=== PATIENT | male | born 1960 | race Asian ===

== ENCOUNTER 2020-09-09 15:24 | Inpatient (IN) | payer MEDICAID ==
[~2020-09-09] VITALS: Ht 167.6 cm; Wt 89.0 kg
[2020-09-09] MEDS ORDERED: BENZ1TAB10 PO (18:16)
[2020-09-09] MEDS ORDERED: QUET200T PO (18:16)
[2020-09-09] MEDS ORDERED: TAMS-13 PO (18:16)
[2020-09-09] MEDS ORDERED: FLUO-191 PO (18:16)
[2020-09-09] MEDS ORDERED: METF-960 PO (18:16)
[2020-09-09] MEDS ORDERED: BUPR-93 PO (18:16)
[2020-09-09] MEDS ORDERED: ZOLPIDEM TARTRATE 10 MG TABLET PO PRN (22:15)
[2020-09-09] MEDS ORDERED: HALOPERIDOL 5 MG TABLET PO PRN (22:15)
[2020-09-09] MEDS ORDERED: LORazepam 2 MG TABLET PO PRN (22:15)
[2020-09-09 22:56] VITALS: BP_SYST 148; BP_SYST 158; BP_DIAS 63
[2020-09-10 01:00] VITALS: BP 156/72
[2020-09-10] MEDS ORDERED: LORazepam 2 MG/ML VIAL ONE (01:04)
[2020-09-10] MEDS ORDERED: DiphenhydrAMINE HCL 50 MG/ML VIAL ONE (01:05)
[2020-09-10] MEDS ORDERED: HALOPERIDOL LACTATE 5 MG/ML VIAL ONE (01:05)
[2020-09-10] MEDS ORDERED: HALOPERIDOL LACTATE 5 MG/ML VIAL IM ONE (01:15)
[2020-09-10] MEDS ORDERED: DiphenhydrAMINE HCL 50 MG/ML VIAL IM ONE (01:15)
[2020-09-10] MEDS ORDERED: LORazepam 2 MG/ML VIAL IM ONE (01:15)
[2020-09-10] MEDS ORDERED: INFLUENZA VIRUS VACCINE QVS 2020-21 (6MO+)/PF 60 MCG/0.5 ML SYRINGE IM ONE (01:30)
[2020-09-10] MEDS ORDERED: PNEUMOCOCCAL VACCINE POLYVALENT 0.5 ML VIAL [PPSV23] IM ONE (01:30)
[2020-09-10 02:11] VITALS: BP 116/70
[2020-09-10] MEDS ORDERED: MAGNESIUM HYDROXIDE SUSPENSION 30 ML UDCUP PO PRN (07:45)
[2020-09-10] MEDS ORDERED: ACETAMINOPHEN 325 MG TABLET PO PRN (07:45)
[2020-09-10] MEDS ORDERED: GuaiFENesin/D-METHORPHAN [SUGAR-FREE] 200-20MG/10 ML SYRUP UDCUP PO PRN (07:45)
[2020-09-10] MEDS ORDERED: MAG HYDROX/AL HYDROX/SIMETH ES 30 ML SUSPENSION UDCUP PO PRN (07:45)
[2020-09-10] MEDS ORDERED: PETROLATUM,WHITE 28 GM JELLY TP PRN (07:45)
[2020-09-10] MEDS ORDERED: ALBUTEROL SULFATE HFA 90 MCG/PUFF 8 GM INHALER IH PRN (07:45)
[2020-09-10] MEDS ORDERED: LOPERAMIDE HCL 2 MG CAPSULE PO PRN (07:45)
[2020-09-10] MEDS ORDERED: NICOTINE 14 MG/24 HOUR PATCH TD PRN (07:45)
[2020-09-10] MEDS ORDERED: DOCUSATE SODIUM 100 MG CAPSULE PO PRN (07:45)
[2020-09-10] MEDS ORDERED: ONDANSETRON HCL 4 MG TABLET PO PRN (07:45)
[2020-09-10] MEDS ORDERED: CloNIDine HCL 0.1 MG TABLET PO PRN (07:45)
[2020-09-10] MEDS ORDERED: IBUPROFEN 400 MG TABLET PO PRN (07:45)
[2020-09-10] MEDS: TAMSULOSIN HCL 0.4 MG CAPSULE PO SCH (09:32)
[2020-09-10] MEDS: BENZTROPINE MESYLATE 1 MG TABLET PO SCH ×2 (13:23→20:38)
[2020-09-10] MEDS: BuPROPion HCL XL 150 MG ER TABLET PO SCH (13:23)
[2020-09-10] MEDS: FLUoxetine HCL 20 MG CAPSULE PO SCH (13:24)
[2020-09-10 16:12] VITALS: BP 129/63
[2020-09-10] MEDS: MetFORMIN HCL 500 MG TABLET PO SCH (16:50)
[2020-09-10] MEDS: QUEtiapine FUMARATE 200 MG TABLET PO SCH (20:38)
[2020-09-11] MEDS: MetFORMIN HCL 500 MG TABLET PO SCH ×2 (06:59→17:15)
[2020-09-11 07:05] VITALS: BP 132/74
[2020-09-11 08:06] LABS: APPEARANCE,URINE CLEAR (CLEAR); BILIRUBIN,URINE NEGATIVE (NEGATIVE); GLUCOSE, URINE (UA) NEGATIVE (NEGATIVE); KETONES,URINE NEGATIVE (NEGATIVE); LEUKOCYTE ESTERASE ,URINE NEGATIVE (NEGATIVE); NITRATE,URINE NEGATIVE (NEGATIVE); OCCULT BLOOD,URINE NEGATIVE (NEGATIVE); PH,URINE 6.5 (5.0-8.0); PROTEIN,URINE NEGATIVE (NEGATIVE); UROBILINOGEN,URINE 0.2 mg/dL (<=1.0)
[2020-09-11 08:11] LABS: AMPHET/METH SCREEN,URINE NEGATIVE (NEGATIVE); BARBITURATE SCREEN, URINE NEGATIVE (NEGATIVE); BENZODIAZEPINES SCREEN,URINE NEGATIVE (NEGATIVE); CANNABINOID SCREEN,URINE NEGATIVE (NEGATIVE); COCAINE SCREEN,URINE NEGATIVE (NEGATIVE); METHADONE SCREEN, URINE NEGATIVE (NEGATIVE); OPIATE SCREEN,URINE NEGATIVE (NEGATIVE)
[2020-09-11 08:12] LABS: BASOPHILS % (AUTO) 0.9 % (0.0-2.0); EOSINOPHILS % (AUTO) 5.3 % (1.0-6.0); HEMATOCRIT 44.1 % (41-53); HEMOGLOBIN 15.1 g/dL (13.5-17.5); LYMPHOCYTES # (AUTO) 1.5 K/uL (1.0-4.8); MEAN CORPUSCULAR HEMOGLOBIN 29.8 pg (26.0-34.0); MEAN CORPUSCULAR HGB CONC 34.3 G/dL (31.0-37.0); MEAN CORPUSCULAR VOLUME 87 fL (80-100); MONOCYTES # (AUTO) 0.6 K/uL (0.1-1.0); MONOCYTES % (AUTO) 9.1 % (2.0-9.0); NEUTROPHILS # (AUTO) 4.2 K/uL (1.8-7.7); NEUTROPHILS % (AUTO) 61.7 % (40.0-70.0); PLATELET COUNT (AUTO) 272 K/uL (150-450); RED BLOOD CELL COUNT(AUTO) 5.06 MIL/uL (4.50-5.90); RED CELL DISTRIBUTION WIDTH 14.3 % (11.5-14.5)
[2020-09-11 08:17] LABS: HEMOGLOBIN A1C 5.8 % (3.8-5.6)
[2020-09-11 08:18] LABS: PHENCYCLIDINE SCREEN,URINE NEGATIVE (NEGATIVE)
[2020-09-11] MEDS: TAMSULOSIN HCL 0.4 MG CAPSULE PO SCH (08:24)
[2020-09-11] MEDS: BuPROPion HCL XL 150 MG ER TABLET PO SCH (08:24)
[2020-09-11] MEDS: BENZTROPINE MESYLATE 1 MG TABLET PO SCH ×2 (08:24→20:13)
[2020-09-11] MEDS: FLUoxetine HCL 20 MG CAPSULE PO SCH (08:24)
[2020-09-11 08:34] VITALS: BP 158/74
[2020-09-11 08:43] LABS: ALBUMIN 3.7 g/dL (3.4-5.0); BILIRUBIN,TOTAL 0.6 mg/dL (0.1-1.0); CALCIUM, TOTAL 8.9 mg/dL (8.8-10.5); CHOL/HDL RATIO 4.2 (4.2-7.3); CREATININE 1.4 mg/dL (0.60-1.30); FREE T4 (FREE THYROXINE) 1.23 ng/dL (0.76-1.46); POTASSIUM 4.8 mmol/L (3.5-5.1); THYROID STIMULATING HORMONE 0.49 uIU/mL (0.36-3.74); TOTAL PROTEIN, SERUM 6.6 g/dL (6.4-8.2)
[2020-09-11 16:06] VITALS: BP 127/86
[2020-09-11 17:22] LABS: GLUCOMETER DEV NAME(LOC) 3E.C; GLUCOSE,POINT OF CARE 98 MG/DL (70-110)
[2020-09-11] MEDS: QUEtiapine FUMARATE 200 MG TABLET PO SCH (20:13)
[2020-09-12] MEDS: MetFORMIN HCL 500 MG TABLET PO SCH (07:06)
[2020-09-12 08:00] VITALS: BP 145/64
[2020-09-12] MEDS: BuPROPion HCL XL 150 MG ER TABLET PO SCH (09:18)
[2020-09-12] MEDS: FLUoxetine HCL 20 MG CAPSULE PO SCH (09:18)
[2020-09-12] MEDS: BENZTROPINE MESYLATE 1 MG TABLET PO SCH (09:18)
[2020-09-12] MEDS: TAMSULOSIN HCL 0.4 MG CAPSULE PO SCH (09:19)
[2020-09-12] MEDS ORDERED: BENZ1TAB10 PO (10:55)
[2020-09-12] MEDS ORDERED: QUET200T29 PO (10:55)
[2020-09-12] MEDS ORDERED: FLUO-191 PO (10:55)
[2020-09-12] MEDS ORDERED: BUPR-47 PO (10:55)
== END 2020-09-12 14:30 | disposition home or self-care (01) | DRG 753 ==
LOC: B3A 22:05 → 3EC 09-11 13:45
DX: F31.5 Bipolar disorder, current episode depressed, severe, with psychotic features (principal); R45.851 Suicidal ideations; Z91.5 Personal history of self-harm; Z81.8 Family history of other mental and behavioral disorders; I10 Essential (primary) hypertension; N40.0 Benign prostatic hyperplasia without lower urinary tract symptoms; E11.9 Type 2 diabetes mellitus without complications; M79.7 Fibromyalgia; G47.33 Obstructive sleep apnea (adult) (pediatric); Z79.899 Other long term (current) drug therapy; Z28.21 Immunization not carried out because of patient refusal
CPT/HCPCS: 80307; 83036; 84439; 84443; 94660; J1200; J1630; J2060

== ENCOUNTER 2022-04-14 17:13 | Inpatient (IN) | payer MEDICARE, MEDICAID ==
[~2022-04-14] VITALS: Ht 170.2 cm; Wt 85.3 kg
[~2022-04-14 17:13] MED LIST: BENZ1TAB96 PO; BUPR-49 PO; FLUO-177 PO; METF-1211 PO; QUET200T30 PO; TAMS-13 PO
[2022-04-14] MEDS ORDERED: METO-558 PO (18:11)
[2022-04-14] MEDS ORDERED: TRAZ-257 PO (18:11)
[2022-04-14] MEDS ORDERED: LISI-892 PO (18:50)
[2022-04-14] MEDS ORDERED: ATOR10TA84 PO (18:50)
[2022-04-14] MEDS ORDERED: OLAN5TAB52 PO (18:50)
[2022-04-14] MEDS ORDERED: DEUT12TA PO (18:50)
[2022-04-14] MEDS ORDERED: CLON-592 PO (18:50)
[2022-04-14] MEDS ORDERED: CLON1PAT13 TD (18:50)
[2022-04-14 20:13] LABS: BASOPHILS % (AUTO) 1.3 % (0.0-2.0); EOSINOPHILS % (AUTO) 1.9 % (1.0-6.0); HEMOGLOBIN 14.3 g/dL (13.5-17.5); LYMPHOCYTES % (AUTO) 21.3 % (22.0-44.0); MEAN CORPUSCULAR HEMOGLOBIN 29.3 pg (26.0-34.0); MEAN CORPUSCULAR VOLUME 86 fL (80-100); MONOCYTES # (AUTO) 0.7 K/uL (0.1-1.0); MONOCYTES % (AUTO) 7.4 % (2.0-9.0); NEUTROPHILS # (AUTO) 6.3 K/uL (1.8-7.7); NEUTROPHILS % (AUTO) 68.1 % (40.0-70.0); PLATELET COUNT (AUTO) 297 K/uL (150-450); RED BLOOD CELL COUNT(AUTO) 4.88 MIL/uL (4.50-5.90); RED CELL DISTRIBUTION WIDTH 13.3 % (11.5-14.5)
[2022-04-14] MEDS ORDERED: DiphenhydrAMINE HCL 50 MG/ML VIAL IM ONE (20:15)
[2022-04-14 20:24] LABS: CALCIUM, TOTAL 8.7 mg/dL (8.8-10.5); CREATININE 1.51 mg/dL (0.60-1.30); POTASSIUM 4.7 mmol/L (3.5-5.1)
[2022-04-14 20:29] LABS: ALBUMIN 3.7 g/dL (3.4-5.0); BILIRUBIN,TOTAL 0.7 mg/dL (0.1-1.0); TOTAL PROTEIN, SERUM 6.7 g/dL (6.4-8.2)
[2022-04-14 21:07] LABS: COVID AG,FIA SOURCE NASAL SWAB
[2022-04-14 21:56] LABS: AMPHET/METH SCREEN,URINE NEGATIVE (NEGATIVE); BARBITURATE SCREEN, URINE NEGATIVE (NEGATIVE); BENZODIAZEPINES SCREEN,URINE NEGATIVE (NEGATIVE); CANNABINOID SCREEN,URINE NEGATIVE (NEGATIVE); COCAINE SCREEN,URINE NEGATIVE (NEGATIVE); METHADONE SCREEN, URINE NEGATIVE (NEGATIVE); OPIATE SCREEN,URINE NEGATIVE (NEGATIVE)
[2022-04-14 22:01] LABS: PHENCYCLIDINE SCREEN,URINE NEGATIVE (NEGATIVE)
[2022-04-15] MEDS ORDERED: ZOLPIDEM TARTRATE 10 MG TABLET PO PRN (00:15)
[2022-04-15] MEDS ORDERED: LORazepam 2 MG TABLET PO PRN (00:15)
[2022-04-15] MEDS ORDERED: HALOPERIDOL 5 MG TABLET PO PRN (00:15)
[2022-04-15 02:46] LABS: GLUCOMETER DEV NAME(LOC) BV2S.; GLUCOSE,POINT OF CARE 106 MG/DL (70-110)
[2022-04-15 03:07] VITALS: BP 138/69
[2022-04-15] MEDS ORDERED: LOPERAMIDE HCL 2 MG CAPSULE PO PRN (06:00)
[2022-04-15] MEDS ORDERED: ALBUTEROL SULFATE HFA 90 MCG/PUFF 8 GM INHALER IH PRN (06:00)
[2022-04-15] MEDS ORDERED: OMEPRAZOLE 20 MG CAPSULE PO PRN (06:00)
[2022-04-15] MEDS ORDERED: ONDANSETRON HCL 4 MG TABLET PO PRN (06:00)
[2022-04-15] MEDS ORDERED: DOCUSATE SODIUM 100 MG CAPSULE PO PRN (06:00)
[2022-04-15] MEDS ORDERED: PETROLATUM,WHITE 28 GM JELLY TP PRN (06:00)
[2022-04-15] MEDS ORDERED: ACETAMINOPHEN 325 MG TABLET PO PRN (06:00)
[2022-04-15] MEDS ORDERED: IBUPROFEN 600 MG TABLET PO PRN (06:00)
[2022-04-15] MEDS ORDERED: BACITRACIN 28 GM OINTMENT TP PRN (06:00)
[2022-04-15] MEDS ORDERED: MAG HYDROX/AL HYDROX/SIMETH ES 30 ML SUSPENSION UDCUP PO PRN (06:00)
[2022-04-15] MEDS ORDERED: MAGNESIUM HYDROXIDE SUSPENSION 30 ML UDCUP PO PRN (06:00)
[2022-04-15] MEDS ORDERED: CloNIDine HCL 0.1 MG TABLET PO PRN (06:00)
[2022-04-15] MEDS ORDERED: BENZOCAINE/MENTHOL LOZENGE PO PRN (06:00)
[2022-04-15] MEDS: LISINOPRIL 5 MG TABLET PO SCH (08:17)
[2022-04-15] MEDS: ATORVASTATIN CALCIUM 10 MG TABLET PO SCH (08:17)
[2022-04-15] MEDS: TAMSULOSIN HCL 0.4 MG CAPSULE PO SCH (08:17)
[2022-04-15 08:28] VITALS: BP 105/59
[2022-04-15] MEDS ORDERED: METOPROLOL SUCCINATE 50 MG ER TABLET PO SCH (09:00)
[2022-04-15] MEDS ORDERED: METOPROLOL SUCCINATE 25 MG ER TABLET PO SCH (09:00)
[2022-04-15 16:06] VITALS: BP 142/81
[2022-04-15 19:00] VITALS: BP 156/81
[2022-04-16 08:00] VITALS: BP 144/94
[2022-04-16] MEDS: LISINOPRIL 5 MG TABLET PO SCH (08:39)
[2022-04-16] MEDS: TAMSULOSIN HCL 0.4 MG CAPSULE PO SCH (08:39)
[2022-04-16] MEDS: ATORVASTATIN CALCIUM 10 MG TABLET PO SCH (08:40)
[2022-04-16] MEDS: METOPROLOL SUCCINATE 50 MG ER TABLET PO SCH (08:40)
[2022-04-16 09:56] LABS: CALCIUM, TOTAL 9.5 mg/dL (8.8-10.5); CREATININE 1.57 mg/dL (0.60-1.30); POTASSIUM 4.5 mmol/L (3.5-5.1)
[2022-04-16 16:17] VITALS: BP 148/84
[2022-04-17] MEDS: ATORVASTATIN CALCIUM 10 MG TABLET PO SCH (08:47)
[2022-04-17] MEDS: TAMSULOSIN HCL 0.4 MG CAPSULE PO SCH (08:47)
[2022-04-17] MEDS: METOPROLOL SUCCINATE 50 MG ER TABLET PO SCH (08:47)
[2022-04-17] MEDS: LISINOPRIL 5 MG TABLET PO SCH (08:47)
[2022-04-17 09:55] VITALS: BP 120/74
[2022-04-17 16:34] VITALS: BP 128/67
[2022-04-18 06:40] VITALS: BP 127/81
[2022-04-18] MEDS: LISINOPRIL 5 MG TABLET PO SCH (08:24)
[2022-04-18] MEDS: TAMSULOSIN HCL 0.4 MG CAPSULE PO SCH (08:24)
[2022-04-18] MEDS: METOPROLOL SUCCINATE 50 MG ER TABLET PO SCH (08:25)
[2022-04-18] MEDS: ATORVASTATIN CALCIUM 10 MG TABLET PO SCH (08:25)
[2022-04-18 10:37] VITALS: BP 151/81
[2022-04-18 16:55] VITALS: BP 125/70
[2022-04-19 08:00] VITALS: BP 146/91
[2022-04-19] MEDS: LISINOPRIL 5 MG TABLET PO SCH (09:11)
[2022-04-19] MEDS: METOPROLOL SUCCINATE 50 MG ER TABLET PO SCH (09:11)
[2022-04-19] MEDS: ATORVASTATIN CALCIUM 10 MG TABLET PO SCH (09:11)
[2022-04-19] MEDS: TAMSULOSIN HCL 0.4 MG CAPSULE PO SCH (09:12)
== END 2022-04-19 14:30 | disposition home or self-care (01) | DRG 885 ==
LOC: EMS 17:59 → B2S 04-15 00:01 → 3EX 04-15 18:34
PROVIDERS: ADMIT Psychiatry & Neurology Psychiatry; ATTEND Psychiatry & Neurology Psychiatry
DX: F25.9 Schizoaffective disorder, unspecified (principal); N18.9 Chronic kidney disease, unspecified; R45.851 Suicidal ideations; E11.22 Type 2 diabetes mellitus with diabetic chronic kidney disease; G47.00 Insomnia, unspecified; K59.00 Constipation, unspecified; F41.9 Anxiety disorder, unspecified; Z20.822 Contact with and (suspected) exposure to COVID-19; G47.33 Obstructive sleep apnea (adult) (pediatric); E78.5 Hyperlipidemia, unspecified; F32.A Depression, unspecified; G24.9 Dystonia, unspecified; I12.9 Hypertensive chronic kidney disease with stage 1 through stage 4 chronic kidney disease, or unspecified chronic kidney disease; J44.9 Chronic obstructive pulmonary disease, unspecified; N40.0 Benign prostatic hyperplasia without lower urinary tract symptoms; F17.210 Nicotine dependence, cigarettes, uncomplicated; Z79.899 Other long term (current) drug therapy; Z71.6 Tobacco abuse counseling
CPT/HCPCS: 36600; 80048; 80053; 82962; 85025; 87081; 94660; 99285; G0378; G0480; J1200

== ENCOUNTER 2022-05-01 04:47 | Emergency (ER) | payer MEDICARE, OTHER ==
[~2022-05-01] VITALS: Ht 167.6 cm; Wt 84.1 kg
[~2022-05-01 04:47] MED LIST changes: +ATOR10TA84 PO; -BENZ1TAB96 PO; -BUPR-49 PO; -FLUO-177 PO; +LISI-892 PO; -METF-1211 PO; +METO-558 PO; -QUET200T30 PO
[2022-05-01 05:18] LABS: COVID AG,FIA SOURCE NASOPHARYNGEAL
[2022-05-01 05:23] LABS: BASOPHILS % (AUTO) 0.7 % (0.0-2.0); EOSINOPHILS % (AUTO) 2.3 % (1.0-6.0); HEMATOCRIT 42.4 % (41-53); HEMOGLOBIN 14.3 g/dL (13.5-17.5); LYMPHOCYTES # (AUTO) 0.9 K/uL (1.0-4.8); LYMPHOCYTES % (AUTO) 10.9 % (22.0-44.0); MEAN CORPUSCULAR HEMOGLOBIN 28.9 pg (26.0-34.0); MEAN CORPUSCULAR HGB CONC 33.6 G/dL (31.0-37.0); MEAN CORPUSCULAR VOLUME 86 fL (80-100); MONOCYTES # (AUTO) 0.7 K/uL (0.1-1.0); NEUTROPHILS # (AUTO) 6.7 K/uL (1.8-7.7); NEUTROPHILS % (AUTO) 78.1 % (40.0-70.0); PLATELET COUNT (AUTO) 342 K/uL (150-450); RED BLOOD CELL COUNT(AUTO) 4.93 MIL/uL (4.50-5.90); RED CELL DISTRIBUTION WIDTH 13.4 % (11.5-14.5)
[2022-05-01 05:39] LABS: CREATININE 1.39 mg/dL (0.60-1.30); POTASSIUM 4.5 mmol/L (3.5-5.1)
[2022-05-01 05:45] LABS: INFLUENZA TYPE A NEGATIVE FOR TYPE A (NEGATIVE); INFLUENZA TYPE B NEGATIVE FOR TYPE B (NEGATIVE)
[2022-05-01 05:51] LABS: ALBUMIN 3.6 g/dL (3.4-5.0); BILIRUBIN,TOTAL 0.4 mg/dL (0.1-1.0); TOTAL PROTEIN, SERUM 6.7 g/dL (6.4-8.2)
[2022-05-01] MEDS ORDERED: ONDANSETRON HCL 4 MG TABLET PO ONE (06:30)
[2022-05-01] MEDS ORDERED: SODIUM CHLORIDE 0.9% 1,000 ML IV ONE (06:45)
[2022-05-01 07:01] LABS: APPEARANCE,URINE CLEAR (CLEAR); BILIRUBIN,URINE NEGATIVE (NEGATIVE); GLUCOSE, URINE (UA) NEGATIVE (NEGATIVE); LEUKOCYTE ESTERASE ,URINE NEGATIVE (NEGATIVE); NITRATE,URINE NEGATIVE (NEGATIVE); OCCULT BLOOD,URINE NEGATIVE (NEGATIVE); PH,URINE 6.5 (5.0-8.0); PROTEIN,URINE NEGATIVE (NEGATIVE); SPECIFIC GRAVITIY, URINE 1.021 (1.003-1.030); UROBILINOGEN,URINE <=1.0 mg/dL (<=1.0)
[2022-05-01 07:08] LABS: AMPHET/METH SCREEN,URINE NEGATIVE (NEGATIVE); BARBITURATE SCREEN, URINE NEGATIVE (NEGATIVE); BENZODIAZEPINES SCREEN,URINE NEGATIVE (NEGATIVE); CANNABINOID SCREEN,URINE NEGATIVE (NEGATIVE); COCAINE SCREEN,URINE NEGATIVE (NEGATIVE); METHADONE SCREEN, URINE NEGATIVE (NEGATIVE); OPIATE SCREEN,URINE NEGATIVE (NEGATIVE)
[2022-05-01 07:09] LABS: PHENCYCLIDINE SCREEN,URINE NEGATIVE (NEGATIVE)
[2022-05-01 08:47] LABS: BACTERIA,URINE None Seen /HPF (None Seen); RBC,URINE None Seen /HPF (0-2)
[2022-05-01 09:43] VITALS: BP 158/80
== END 2022-05-01 09:53 | disposition home or self-care (01) ==
LOC: EMS 05:06
DX: R19.7 Diarrhea, unspecified (principal); E11.9 Type 2 diabetes mellitus without complications; I10 Essential (primary) hypertension; G47.30 Sleep apnea, unspecified; N40.0 Benign prostatic hyperplasia without lower urinary tract symptoms; N18.9 Chronic kidney disease, unspecified; F17.210 Nicotine dependence, cigarettes, uncomplicated; F25.9 Schizoaffective disorder, unspecified; Z20.822 Contact with and (suspected) exposure to COVID-19
CPT/HCPCS: 36415; 71045; 74176; 80053; 80307; 81001; 82550; 83880; 84484; 85025; 87426; 87804; 93005; 96360; 99285; G0480; J7030; Q0162; 96361